=== PATIENT | female | born 1990 | race Two or more races ===

== ENCOUNTER 2025-02-27 03:10 | Inpatient (IN) | payer MEDICAID, SELFPAY ==
[2025-02-27] VITALS (24 sets, daily range): BP systolic 101–155; BP diastolic 56–82; PULSE 57–90; RESP 15–99; TEMP 36.6–37.3; O2SAT 96–100; BMI 24.9
--- NOTE | 2025-02-27 03:36 | PC.NURSE ---
Notified CNM of patients arrival to unit, patient co of contractions q5 min since 220 last last night, patient denies leaking or bleeding and endorses positive movement.
[2025-02-27] MEDS: RINGERS LACTATED 1000 ML 1,000 ML 125 ML IV (04:09)
[2025-02-27 04:55] LABS: Basophils % (Auto) 0 % (0-2.5); Eosinophils % (Auto) 0 % (0-10); Hematocrit 31.1 % (36.0-46.0); Hemoglobin 10.5 g/dL (12.0-16.0); Immature Granulocytes % (Auto) 0 % (0-0); Immature Granulocytes Auto 0.01 Thou/mm3 (0.00-0.00); Lymphocytes # (Auto) 1.6 Thou/mm3 (1.0-4.8); Lymphocytes % (Auto) 25 % (10-50); Mean Corpuscular HGB Conc 33.8 g/dl (31.0-37.0); Mean Corpuscular Hemoglobin 28.9 pg (25.0-35.0); Mean Corpuscular Volume 86 fL (80-100); Monocytes # (Auto) 0.5 Thou/mm3 (0.0-0.8); Monocytes % (Auto) 7 % (0-12); Neutrophils # (Auto) 4.4 Thou/mm3 (1.8-7.7); Neutrophils % (Auto) 68 % (37-80); Nucleated Red Blood Cell % 0 /100 WBC (0); Platelet Count 214 Thou/mm3 (140-440); RDW Standard Deviation 44.3 fL (36.4-46.3); Red Blood Count 3.63 Miln/mm3 (4.00-5.20); White Blood Count 6.6 Thou/mm3 (3.6-11.0)
[2025-02-27 05:01] LABS: Amphetamine/Metham Scrn,Ur OB Negative (Negative); Benzoylecgonine Screen, Ur OB Negative (Negative); Opiate Screen,Urine OB Negative (Negative); THC Screen,Urine OB Negative (Negative)
[2025-02-27 05:29] LABS: Syphilis Nonreactive (Nonreactive)
--- NOTE | 2025-02-27 05:57 | ESHP_ITS ---
Documentation for date of: 02/27/25 OB Labor/Induct. HPI History of Present Illness Chief complaint: 34 y/o 39w 1d presents to L&D in labor at 4 cm john : 4 Para: 3 Term pregnancies: 3 pregnancies: 3 Living children: 3 History of Abortions: Spontaneous and Elective: 0 History of Vaginal deliveries: 3 History of sections: No History of : No Date of last menstrual period: 05/29/24 [place]: 03/05/25 Gestational Age (weeks): 39 Gestational Age (days): 1 Gestational age based on last menstrual period: 39 History of present illness: 34 y/o 39w 1d presents to L&D in labor at 4 cm vertex john 2-4 minutes, membranes intact, GBS is neg. Pt has a hx of nvdx3 no complications. Pt's has been uncomplicated with the exception of anemia. EFW 3000g. History of Present Dating criteria: based on LMP only Ultrasounds: normal 1st trimester US and normal mid trimester US Obstetrical complications: other (Anemia) Medical complications: none Labs Maternal Blood Type: O Pos Labs: Positive: Rubella Titre, Negative: RPR, Hepatitis B, HIV, Chlamydia, Gonorrhea and Group Beta Strep and Unknown: Herpes Type 1, Herpes Type 2 and Covid-19 Review of Systems Review of Systems Systems Reviewed: All systems reviewed, normal except as documented Past Medical History Surgical History SURGICAL: Negative Section Meds Home Medications and Allergies Home Medications ?Medication ?Instructions ?Recorded ?Confirmed ?Type prenat.vits,meli,[id number] 1 tab PO QDAY 02/27/25 02/27/25 History Allergies Allergy/AdvReac Type Severity Reaction Status Date / Time No Known Allergies Allergy Verified 02/27/25 03:39 OB Exam Physical Exam Vital signs: Temp Pulse Resp BP Pulse Ox 98.1 F 81 18 136/81 H 99 02/27/25 03:19 02/27/25 05:34 02/27/25 03:32 02/27/25 05:34 02/27/25 03:57 Constitutional Constitutional: moderate distress (Secondary to painful contractions) Routine HEENT Exam Head: Present normocephalic and atraumatic Eye: Present EOMI, PERRL and normal accommodation ENT: Present mucous membranes moist Routine Neck Exam Neck: Present supple and trachea midline Routine Respiratory Exam Respiratory: Absent respiratory distress Routine Cardiovascular Exam Cardiovascular: Present RRR Routine Abdominal Exam Abdominal: Present soft and normoactive bowel sounds Comments: Gravid Uterus EFW 3000g Routine Exam External: Present normal urethra appearance; Absent lesions Detailed Labor and Delivery Exam Dilation (cm): 4 Effacement (%): 80 Cervix position: posterior station: -2 Consistency: soft Presentation: Vertex Membranes: intact Baseline heart rate: 125 monitor accelerations: 15x15 monitor decelerations: None prison variability: Moderate (11-25) Contraction frequency (min): 2-4 Routine Extremities Exam Extremities: Present full ROM Routine Back/Spine/Pelvis Exam Back/Spine: Present full ROM Routine Skin Exam Skin: Present intact, dry and warm Routine Neurological Exam Neurological: Present alert, oriented X3 and CN II-XII intact Routine Psychiatric Exam Psychiatric: Present normal affect and normal thought process OB Results Labs 02/27/25 03:56 Labs: Short CBC 02/27/25 Range/Units 03:56 WBC 6.6 (3.6-11.0) Thou/mm3 Hgb 10.5 L (12.0-16.0) g/dL Hct 31.1 L (36.0-46.0) % Plt Count 214 (140-440) Thou/mm3 OB Assessment & Plan Assessment and Plan (1) Normal labor: Status: Acute (2) Anemia affecting in third trimester: Status: Acute Additional Plan Induction method: none Plan: anticipate NVD and consult MD castillo Additional Plan Comment: Routine admit orders Continuous EFM
--- NOTE | 2025-02-27 06:21 | OBDSUM_ITS ---
Data (Minor) Data Hx Section: No Maternal Blood Type: O Pos Rubella Titre: Positive RPR: Non-reactive Labs: Negative: RPR, Hepatitis B, HIV, Chlamydia, Gonorrhea and Group Beta Strep and Unknown: Herpes Type 1 and Herpes Type 2 : 4 Para: 3 Term: 3 : 3 Livin Abortions: Spontaneous & Theraputic: 0 Delivery Data (Minor) Labor Data Initiation of labor: Spontaneous Induction/Augmentation Agent: None ROM date: 02/27/25 ROM time: 05:35 Amniotic membrane rupture type: Spontaneous Amniotic fluid description: Clear Delivery Data EDC: 03/05/25 EDC calculated by:: LMP Complete dilation date: 02/27/25 Complete dilation time: 05:25 [place] delivery date: 02/27/25 [place] delivery time: :51 Gestational age (weeks): 39 Gestational age (days): 1 Placenta delivery date: 02/27/25 Placenta delivery time: 05:53 Delivered by: Isabel Plummer Delivery nurse: Jennifer Jane nurse: Mami Whyte Dehydrogenation Supervisor at delivery: No Delivery Method Delivery: Vaginal Delivery Type: Primary Presentation: Vertex Position: OA Anesthesia Type Primary Anesthesia: None Delivery Room Medications Other Intrapartum Medications: No Post Delivery Medications N/A: No Placenta Placenta Delivery: Spontaneous Placenta Cultures Obtained: No Placenta Sent for Examination: No Cord Sample: Cord Blood Obtained Episiotomy Episiotomy: None EBL Estimated blood loss (ml): 100 Umbilical Cord Umbilical Vessels: 3 Nuchal Cord: Not Applicable Body Cord: Not Applicable Additional Procedures Patient was admitted early this morning in labor at 4 cm supra breast well and within a couple hours was complete. After a few pushes had an of a viable female . Infant's delivered in OP position in the anterior and posterior shoulder delivered and the body without any complications. placed on mother's abdomen. Vigorous cry upon delivery. Cord was clamped. Cut by CNM. Cord blood obtained. Three-vessel cord noted. Placenta expelled spontaneously and intact. No lacerations noted. Perineum intact. Excellent hemostasis achieved after vigorous fundal massage and removal of clots from the posterior fornix. EBL 100. Sponge and needle count correct. Mother and baby stable, skin to skin and bonding in LDR. Data (Minor) Data 's gender: Female Identification band number: [id number] weight (gms): 2945 g Weight (pounds): 6 lbs and 7.9 ozs length: 50 cm 1 minute: 9 5 minutes: 9
[2025-02-27] MEDS: OXYTOCIN in NS 20 units 20 UNIT/1,000 ML BAG 125 UNIT IV (06:25)
--- NOTE | 2025-02-27 06:25 | ESDS_ITS ---
DS: Providers Provider Date of admission: 02/27/25 03:32 Primary care physician: Physician No Primary/Family Admitting Provider: Sony Colbert MD Attending Provider on Admission: Isabel Plummer CNM Attending Provider on DC: Isabel Plummer CNM Discharging Provider: Isabel Plummer CNM Anticipated date of discharge: 02/28/25 DS: Diagnosis Discharge Diagnosis (1) Normal spontaneous vaginal delivery: Status: Acute (2) Encounter for care of lactating mother: Status: Acute (3) Anemia affecting in third trimester: Status: Acute (4) Normal labor: Status: Acute Problem List Completed Was Problem List Reviewed/Reconciled?: Yes Summary/Hosp Course Brief History: 34 y/o 39w 1d presents to L&D in labor at 4 cm vertex john 2-4 minutes, membranes intact, GBS is neg. Pt has a hx of nvdx3 no complications. Pt's has been uncomplicated with the exception of anemia. EFW 3000g. 02/27/25: Patient was admitted early this morning in labor at 4 cm supra breast well and within a couple hours was complete. After a few pushes had an of a viable female . 's delivered in OP position in the anterior and posterior shoulder delivered and the body without any complications. Infant placed on mother's abdomen. Vigorous cry upon delivery. Cord was clamped. Cut by HAROON. Cord blood obtained. Three-vessel cord noted. Placenta expelled spontaneously and intact. No lacerations noted. Perineum intact. Excellent hemostasis achieved after vigorous fundal massage and removal of clots from the posterior fornix. EBL 100. Sponge and needle count correct. Mother and baby stable, skin to skin and bonding in LDR. 02/28/25: PPD#1 patient is stable and afebrile doing well. No dizziness no shortness of breath. No complaints. Breast-feeding well. Uterus nontender fundus firm minimal lochia. Discharge instructions given. Patient to follow-up with Isabel Plummer CNM in 3 weeks Peripartum Data Delivery Method: Normal Vaginal Delivery Episiotomy Description: None Laceration Description: no complications: none [place] 1: Gender: Female Disposition of : home Status at Discharge Cognitive/behavioral status at discharge: Alert and oriented x 3 Functional status at discharge: independent ambulation Overall status at discharge: patient is progressing back to baseline Time Spent with Patient Time attestation: Total time spent providing and/or coordinating discharge services: Time spent: Greater than 30 minutes Exam Vital Signs Temp Pulse Resp BP Pulse Ox 98.1 F 69 18 101/63 99 02/27/25 03:19 02/27/25 06:01 02/27/25 03:32 02/27/25 06:01 02/27/25 03:57 Constitutional Constitutional: no acute distress Routine HEENT Exam Head: Present normocephalic and atraumatic Eye: Present EOMI, PERRL and normal accommodation ENT: Present mucous membranes moist Routine Neck Exam Neck: Present supple, full ROM and trachea midline Routine Respiratory Exam Respiratory: Present chest non-tender, lungs clear, normal breath sounds and no resp distress Routine Cardiovascular Exam Cardiovascular: Present RRR Routine Abdominal Exam Abdominal: Present soft and normoactive bowel sounds; Absent tenderness or distended Comments: Uterus nontender Fundus firm Routine Exam Patient deferred: external exam Routine Extremities Exam Extremities: Present full ROM and pulses intact; Absent normal capillary refill, calf tenderness or tenderness Routine Back/Spine/Pelvis Exam Back/Spine: Present full ROM Routine Skin Exam Skin: Present intact, dry and warm Routine Neurological Exam Neurological: Present alert, oriented X3 and CN II-XII intact Routine Psychiatric Exam Psychiatric: Present normal affect and normal thought process Discharge Plan Plan Patient Disposition: HOME (Self Care) Patient condition on transfer: Stable Prescriptions/Referrals Prescriptions/Med Rec: New docusate sodium [Colace] 100 mg capsule 100 mg PO BID Qty: 60 0RF ibuprofen 600 mg tablet 600 mg PO Q6H PRN (Reason: pain) Qty: 90 0RF lanolin 50 % ointment 1 applic topical TID PRN (Reason: skin irritation) Qty: 15 0RF Continued prenat.vits,meli,[id number] Tablet 1 tab PO QDAY Referrals: No Primary/Family,Physician [Primary Care Provider] - Patient/Caregiver Discharge Instructions Meds to Beds: No Discharge Activity: activity as tolerated Other Discharge Activity Instructions:: Follow-up with Isabel Plummer CNM in 3 weeks Education Materials: After a Vaginal , After Delivery [place] Concerns, : Caring for Yourself Print Language: Kinyarwanda Stand Alone Forms: [facility] Award Info., Patient Portal Info Letter Discharge Order Discharge Orders: Discharge (Routine); Ordered 02/28/25 Ordered By: Isabel Plummer Planned Discharge Date 02/28/25
[2025-02-27] MEDS: MINERAL OIL 30 ML UDC TOP (06:26)
[2025-02-27] MEDS: IBUPROFEN TAB 400 MG TABLET 800 MG PO (06:47)
--- NOTE | 2025-02-27 07:10 | PC.NURSE ---
Unable to get vital sign Q15min due to hospital generator reboot.
[2025-02-27] MEDS: DOCUSATE SOD 100 MG CAPSULE PO (09:41)
[2025-02-27 12:11] LABS: Basophils % (Auto) 0 % (0-2.5); Eosinophils % (Auto) 0 % (0-10); Hematocrit 32.2 % (36.0-46.0); Hemoglobin 10.7 g/dL (12.0-16.0); Immature Granulocytes % (Auto) 0 % (0-0); Immature Granulocytes Auto 0.04 Thou/mm3 (0.00-0.00); Lymphocytes # (Auto) 1.4 Thou/mm3 (1.0-4.8); Lymphocytes % (Auto) 12 % (10-50); Mean Corpuscular HGB Conc 33.2 g/dl (31.0-37.0); Mean Corpuscular Hemoglobin 28.8 pg (25.0-35.0); Mean Corpuscular Volume 87 fL (80-100); Monocytes # (Auto) 0.7 Thou/mm3 (0.0-0.8); Monocytes % (Auto) 6 % (0-12); Neutrophils # (Auto) 9.3 Thou/mm3 (1.8-7.7); Neutrophils % (Auto) 81 % (37-80); Nucleated Red Blood Cell % 0 /100 WBC (0); Platelet Count 207 Thou/mm3 (140-440); RDW Standard Deviation 45.1 fL (36.4-46.3); Red Blood Count 3.71 Miln/mm3 (4.00-5.20); White Blood Count 11.6 Thou/mm3 (3.6-11.0)
[2025-02-28] MEDS: ACETAMINOPHEN 325 MG TABLET 650 MG PO (00:13)
[2025-02-28 04:05] VITALS: BP 119/71; PULSE 58; RESP 16; TEMP 36.8; O2SAT 99
[2025-02-28 08:30] VITALS: BP 112/68; PULSE 74; RESP 20; TEMP 36.9; O2SAT 97
[2025-02-28] MEDS: DOCUSATE SOD 100 MG CAPSULE PO (09:23)
== END 2025-02-28 15:00 | disposition home or self-care (01) | DRG 560 ==
LOC: S4SX 06:28 → S4NX 08:04
PROVIDERS: Nurse Practitioner Women's Health; Admitting Provider Student in an Organized Health Care Education/Training Program; Visit Provider Specialist
DX: O80 Encounter for full-term uncomplicated delivery (principal); Z37.0 Single live birth; Z3A.39 39 weeks gestation of pregnancy
CPT/HCPCS: 36415; 59025; 59409; 80307; 85025; 86780; 86850; 86900; 86901; 94762; J2590; J7120; A9270